=== PATIENT | female | born 1995 | race Caucasian/White ===

== ENCOUNTER 2021-06-24 09:48 | Emergency (ER) | payer OTHER ==
[~2021-06-24] VITALS: Ht 165.1 cm; Wt 72.6 kg
[2021-06-24] MEDS ORDERED: ZOLOFT 50 MG TA50 MG PO (10:03)
[2021-06-24] MEDS ORDERED: HYDROXYZINE HCL10 M2 PO (10:03)
[2021-06-24] MEDS ORDERED: AMOXICILLIN 50500 MG PO (10:03)
[2021-06-24 10:25] LABS: URINE BILIRUBIN NEGATIVE (Negative); URINE BLOOD NEGATIVE (Negative); URINE CLARITY CLEAR; URINE COLOR YELLOW; URINE GLUCOSE-RANDOM NEGATIVE (Negative); URINE KETONES NEGATIVE (Negative); URINE LEUKOCYTES-REFLEX NEGATIVE (Negative); URINE NITRITE-REFLEX NEGATIVE (Negative); URINE PROTEIN NEGATIVE (Negative); URINE SPECIFIC GRAVITY >= 1.030 (1.005-1.030); URINE UROBILINOGEN 0.2 E.U./dl (0.2-1.0)
[2021-06-24] MEDS ORDERED: AZITHROMYCIN 2250 MG PO (10:53)
[2021-06-24] MEDS ORDERED: DOXYCYCLINE 10100 MG PO (10:53)
[2021-06-24 11:05] VITALS: BP 128/70
== END 2021-06-24 11:06 | disposition home or self-care (01) ==
LOC: M.ERS 09:48
PROVIDERS: Family Medicine
DX: L73.9 Follicular disorder, unspecified (principal); N89.8 Other specified noninflammatory disorders of vagina; Z88.1 Allergy status to other antibiotic agents; Z79.2 Long term (current) use of antibiotics; Z79.899 Other long term (current) drug therapy